=== PATIENT | male | born 1965 | race Caucasian/White ===

== ENCOUNTER 2019-11-24 13:40 | Emergency (ER) | payer MEDICAID, OTHER ==
[~2019-11-24] VITALS: Ht 183.5 cm; Wt 100.0 kg
[~2019-11-24 13:40] MED LIST: ATOR20TA86 PO; BENZ1TAB70 PO; DIVA500T52 PO; TRIL8 PO
[2019-11-24 14:09] VITALS: BP 155/97
== END 2019-11-24 17:34 | disposition home or self-care (01) ==
LOC: EMS 13:42
DX: F20.9 Schizophrenia, unspecified (principal)

== ENCOUNTER 2024-06-11 12:48 | Emergency (ER) | payer OTHER ==
[~2024-06-11] VITALS: Ht 183.5 cm; Wt 95.5 kg
[~2024-06-11 12:48] MED LIST changes: +ATOR20TA PO; -ATOR20TA86 PO; +DIVA-153 PO; -DIVA500T52 PO
[2024-06-11] MEDS ORDERED: ACET-3385 PO (12:50)
[2024-06-11 14:09] LABS: BASOPHILS % (AUTO) 0.8 % (0.0-2.0); EOSINOPHILS % (AUTO) 0.3 % (1.0-6.0); HEMATOCRIT 41.9 % (41-53); HEMOGLOBIN 14.3 g/dL (13.5-17.5); LYMPHOCYTES # (AUTO) 1.6 K/uL (1.0-4.8); LYMPHOCYTES % (AUTO) 23.5 % (22.0-44.0); MEAN CORPUSCULAR HEMOGLOBIN 30.4 pg (26.0-34.0); MEAN CORPUSCULAR VOLUME 89 fL (80-100); MONOCYTES # (AUTO) 0.6 K/uL (0.1-1.0); MONOCYTES % (AUTO) 8.7 % (2.0-9.0); NEUTROPHILS # (AUTO) 4.7 K/uL (1.8-7.7); NEUTROPHILS % (AUTO) 66.7 % (40.0-70.0); PLATELET COUNT (AUTO) 339 K/uL (150-450); RED BLOOD CELL COUNT(AUTO) 4.69 MIL/uL (4.50-5.90); RED CELL DISTRIBUTION WIDTH 14.4 % (11.5-14.5)
[2024-06-11 14:18] LABS: ANION GAP 7 mmol/L (8-16); CALCIUM, TOTAL 9.3 mg/dL (8.8-10.5); CARBON DIOXIDE 29 mmol/L (22-29); CHLORIDE 100 mmol/L (98-107); CREATININE 0.87 mg/dL (0.60-1.30); GLOMERULAR FILTR. RATE CALC > 60 mL/min (>60); GLUCOSE,RANDOM 105 mg/dL (70-110); POTASSIUM 3.7 mmol/L (3.5-5.1); SODIUM SERUM 136 mmol/L (136-145); UREA NITROGEN, BLOOD 7 mg/dL (7-18)
[2024-06-11 14:19] LABS: COVID AG,FIA SOURCE NASAL SWAB
[2024-06-11 14:25] LABS: VALPROIC ACID 72 mcg/mL (50-100)
[2024-06-11 14:45] LABS: ALCOHOL, BLOOD (SERUM) < 3 mg/dL (0-10)
[2024-06-11 14:50] VITALS: BP 134/75; PULSE 85; RESP 18; TEMP 98.3; O2SAT 99
[2024-06-11 14:52] LABS: SARS-COV2 (COVID) ANTIGEN,FIA Negative (Negative)
== END 2024-06-11 17:23 | disposition home or self-care (01) ==
LOC: EMS 12:49
DX: F20.9 Schizophrenia, unspecified (principal); F32.A Depression, unspecified; Z79.899 Other long term (current) drug therapy; Z20.822 Contact with and (suspected) exposure to COVID-19
CPT/HCPCS: 99283; 87426; 80048; 80164; 85025; 36415; G0480